=== PATIENT | female | born 1985 | race Caucasian/White ===

== ENCOUNTER 2020-10-20 03:38 | Emergency (ER) | payer OTHER, SELFPAY ==
[2020-10-20 03:42] VITALS: BP 110/74; PULSE 114; RESP 16; TEMP 36.7; O2SAT 99; BMI 24.9
--- NOTE | 2020-10-20 03:56 | CTR_ITS ---
PROCEDURE INFORMATION: Exam: CT Abdomen And Pelvis With Contrast Exam date and time: 10/20/2020 4:32 AM Age: 35 years old Clinical indication: Nausea and vomiting; Additional info: Abdominal pain, hematemasis TECHNIQUE: Imaging protocol: Computed tomography of the abdomen and pelvis with contrast. Radiation optimization: All CT scans at this facility use at least one of these dose optimization techniques: automated exposure control; mA and/or kV adjustment per patient size (includes targeted exams where dose is matched to clinical indication); or iterative reconstruction. Contrast material: OMNI 300; Contrast volume: 95 ml; Contrast route: INTRAVENOUS (IV); COMPARISON: No relevant prior studies available. RADIATION DOSE METRICS: Total DLP (mGy-cm): 1125.55 FINDINGS: Liver: No mass. Gallbladder and bile ducts: No calcified stones. No ductal dilation. Pancreas: No ductal dilation. Spleen: No splenomegaly. Adrenal glands: Normal. No mass. Kidneys and ureters: No hydronephrosis. Stomach and bowel: Left adnexal cyst measuring 3.7 x 4.6 cm versus fluid-filled loop of bowel (axial image 63). Further characterization with pelvic ultrasound may be helpful. Fluid-filled loops of small and large bowel without a transition point identified. Correlate clinically to exclude an enterocolitis or ileus. Appendix: No evidence of appendicitis. Intraperitoneal space: No free air. No significant fluid collection. Vasculature: No abdominal aortic aneurysm. Lymph nodes: No enlarged lymph nodes. Urinary bladder: Unremarkable as visualized. Reproductive: See above. Bones/joints: Unremarkable. No acute fracture. Soft tissues: Unremarkable. CT/CT abdomen pelvis w con* [id number] IMPRESSION: 1. Left adnexal cyst measuring 3.7 x 4.6 cm versus fluid-filled loop of bowel. Further characterization with pelvic ultrasound may be helpful. 2. Fluid-filled loops of small and large bowel without a transition point identified. Correlate clinically to exclude an enterocolitis or ileus. Radiation Dose CTDIVOL = (mGy): DLP = 1125.55 (mGy-cm)
[2020-10-20 04:31] LABS: Basophils # 0.1 10^3/uL (0.0-0.1); Basophils % 0.5 %; Eosinophils # 0.1 10^3/uL (0.0-0.8); Eosinophils % 0.4 %; Hematocrit 50.1 % (37.0-47.0); Hemoglobin 16.5 g/dL (11.5-15.3); Lymphocytes # 0.6 10^3/uL (0.8-4.8); Lymphocytes % 4.2 %; Mean Corpuscular HGB Conc 32.9 g/dL (30.0-36.0); Mean Corpuscular Hemoglobin 29.1 pg (28.0-34.0); Mean Corpuscular Volume 88.4 fL (81-99); Monocytes # 1.1 10^3/uL (0.2-0.9); Monocytes % 7.3 %; Neutrophils # 13.36 10^3/uL (1.8-7.7); Neutrophils % 87.1 %; Nucleated Red Blood Cells % 0 %; Platelet Count 263 10^3/cmm (130-400); Red Blood Count 5.67 10^6/uL (4.1-5.3); White Blood Count 15.3 10^3/uL (4.0-10.0)
[2020-10-20] MEDS: sodium chloride 0.9% 1,000 ML 999 ML IV (04:36)
[2020-10-20] MEDS: LORazepam 2 mg/mL INJ 1 mL 1 MG IVP (04:36)
[2020-10-20] MEDS: ondansetron 2 mg/ML SDV 2 mL 4 MG IVP (04:36)
[2020-10-20 04:45] LABS: Add Urine Culture? No; Add Urine Microscopic? YES; Bacteria Urine TRACE /hpf; Bilirubin Urine Neg (Negative); Blood Urine Neg (Negative); Glucose Urine UA Norm (Normal); Ketones Urine 1+ (Negative); Leukocyte Esterase Urine Negative (Negative); Mucus Urine 2+ /hpf; Nitrate Urine Negative (Negative); Protein Urine Neg (Negative); Specific Gravity, Urine 1.025 (1.005-1.030); Urine Appearance SL Hazy (CLEAR); Urine Color Yellow (Yellow); Urobilinogen Urine Norm (Negative); pH Urine 5 (5-7)
[2020-10-20 04:48] LABS: Alanine Aminotransferase 19 U/L (0-33); Albumin Level 4.8 g/dL (3.5-5.2); Alkaline Phosphatase 97 IU/L (35-105); Anion Gap 17.2 (5-19); Aspartate Amino Transferase 21 U/L (0-32); Blood Urea Nitrogen 14 mg/dL (6-20); C Reactive Protein 2.2 mg/L (0.0-4.9); Calcium 8.8 mg/dL (8.5-10.5); Carbon Dioxide 26 mmol/L (22-29); Chloride 103 mmol/L (98-107); Globulin 2.6 g/dL (1.3-4.6); Glomerular Filtration Rate 113.1 mL/min (90-130); Glucose 117 mg/dL (65-115); Lipase 31 U/L (13-60); Osmolality Calculated 296 mOsm/kg (285-295); Potassium 4.2 mmol/L (3.5-5.1); Sodium 142 mmol/L (136-145); Total Bilirubin 0.5 mg/dL (0.15-1.2); Total Protein 7.4 g/dL (6.6-8.7)
[2020-10-20 04:49] VITALS: BP 118/78; PULSE 68; RESP 16; O2SAT 98
[2020-10-20 04:49] LABS: HCG, Serum Qual Negative (Negative)
[2020-10-20] MEDS: iohexol 300 mg/mL 100 mL Btl IV (04:57)
--- NOTE | 2020-10-20 05:27 | ED_ITS ---
HPI - Nausea/Vomiting/Diarrhea General: Chief complaint: Nausea/Vomiting/Diarrhea Stated complaint: N/V/D Time Seen by Provider: 10/20/20 03:55 History of Present Illness: HPI Narrative: 35-year-old female presents with vomiting and diarrhea that started at midnight. The last few time she is vomited, she has noticed blood in the emesis. She says that this happened once before to her several years ago. No known inciting event. No fever. Minimal belly pain. She has had a tubal ligation and 2 C-sections as far as belly surgeries. MD elicited complaint: nausea, vomiting and diarrhea Pertinent past history: abdominal surgery (distant) Onset (ago): hour(s) Description of vomiting: watery and bloody Description of diarrhea: watery Associated nausea: Yes Associated abdominal pain: No Location of pain: Diffuse Radiation: diffuse Pain consistency: constant Quality: cramping Associated symtoms: Reports nausea; Denies altered mental status, cough, dizziness, fevers/chills, rash or short of breath Review of Systems Const: Denies: fever(s) or chills Resp: Denies: dyspnea or productive cough GI: Reports: nausea, vomiting, hematemesis and diarrhea Neuro: Denies: dizziness PFSH ED PFSH: Social History Smoking and tobacco status: never smoked Physical Exam Const: EXAM LIMITATIONS: no altered mental status Eye: COMMON NORMALS: Equal, round and reactive pupils present and EOMs intact bilaterally PUPIL: Yes Equal, round and reactive pupils present Chest: COMMONS NORMALS: normal inspection of the chest and normal inspection of the breasts Breast/axilla inspection: Yes normal inspection of the breasts Resp: COMMON NORMALS: normal respiratory effort, No use of accessory muscles and clear to auscultation bilaterally AUSCULTATION: clear to auscultation bilaterally Cardio: COMMON NORMALS: regular rhythm and No murmurs present (Cardio) RATE: tachycardic RHYTHM: regular rhythm GI: COMMON NORMALS: Soft to palpation and non-tender INSPECTION: Yes normal to inspection AUSCULTATION: Yes Hyperactive bowel sounds present PALPATION: Yes Soft to palpation Course Vital Signs: Vital signs: Vital Signs Temperature 98.1 F 10/20/20 03:42 Pulse Rate 114 H 10/20/20 03:42 Respiratory Rate 16 05/16/21 03:42 Blood Pressure 110/74 10/20/20 03:42 Pulse Oximetry 99 10/20/20 03:42 MDM - Nausea/Vomiting/Diarrhea MDM Narrative: Medical decision making narrative: 35-year-old female with a history of multiple episodes of vomiting and diarrhea. Evidently there was some blood in the vomitus. Her white blood cell count is 15.3. Hemoglobin 16.5. Electrolytes and renal function are normal. She has ketones in her urine. CT reveals fluid-filled loops of small and large bowel without a transition point indicative of enterocolitis. Lab Data: Labs: Lab Results 10/20/20 10/20/20 10/20/20 Range/Units 04:25 04:25 04:25 WBC 15.3 H (4.0-10.0) 10^3/ uL RBC 5.67 H (4.1-5.3) 10^6/u L Hgb 16.5 H (11.5-15.3) g/dL Hct 50.1 H (37.0-47.0) % MCV 88.4 (81-99) fL MCH 29.1 (28.0-34.0) pg MCHC 32.9 (30.0-36.0) g/dL RDW 13.0 (12.1-15.1) % Plt Count 263 (130-400) 10^3/c mm MPV 10.0 (7.4-10.4) fL Neut % (Auto) 87.1 % Lymph % (Auto) 4.2 % Calhoun % (Auto) 7.3 % Eos % (Auto) 0.4 % Baso % (Auto) 0.5 % Neut # (Auto) 13.36 H (1.8-7.7) 10^3/u L Lymph # (Auto) 0.6 L (0.8-4.8) 10^3/u L Calhoun # (Auto) 1.1 H (0.2-0.9) 10^3/u L Eos # (Auto) 0.1 (0.0-0.8) 10^3/u L Baso # (Auto) 0.1 (0.0-0.1) 10^3/u L Nucleated RBC % (a uto) 0 % Nucleated RBCs # 0.0 /100WBC Sodium 142 (136-145) mmol/L Potassium 4.2 (3.5-5.1) mmol/L Chloride 103 (98-107) mmol/L Carbon Dioxide 26 (22-29) mmol/L Anion Gap 17.2 (5-19) BUN 14 (6-20) mg/dL Creatinine 0.6 (0.5-0.9) mg/dL GFR Calculation 113.1 (90-130) mL/min Glucose 117 H (65-115) mg/dL Calculated Osmolal ity 296 H (285-295) mOsm/k g Calcium 8.8 (8.5-10.5) mg/dL Total Bilirubin 0.5 (0.15-1.2) mg/dL AST 21 (0-32) U/L ALT 19 (0-33) U/L Alkaline Phosphata se 97 (35-105) IU/L C-Reactive Protein 2.2 (0.0-4.9) mg/L Total Protein 7.4 (6.6-8.7) g/dL Albumin 4.8 (3.5-5.2) g/dL Globulin 2.6 (1.3-4.6) g/dL Lipase 31 (13-60) U/L HCG, Qual Negative (Negative) Urine Color (Yellow) Urine Appearance (CLEAR) Urine pH (5-7) Ur Specific Gravit y (1.005-1.030) Urine Protein (Negative) Urine Glucose (UA) (Normal) Urine Ketones (Negative) Urine Blood (Negative) Urine Nitrate (Negative) Urine Bilirubin (Negative) Urine Urobilinogen (Negative) mg/dL Ur Leukocyte Luz ase (Negative) Urine RBC (0-2) /hpf Urine WBC (0-5) /hpf Ur Squamous Epith Cells (0-5) /hpf Amorphous Sediment Urine Bacteria (NONE) /hpf Urine Mucus /hpf 10/20/20 Range/Units 04:25 WBC (4.0-10.0) 10^3/ uL RBC (4.1-5.3) 10^6/u L Hgb (11.5-15.3) g/dL Hct (37.0-47.0) % MCV (81-99) fL MCH (28.0-34.0) pg MCHC (30.0-36.0) g/dL RDW (12.1-15.1) % Plt Count (130-400) 10^3/c mm MPV (7.4-10.4) fL Neut % (Auto) % Lymph % (Auto) % Calhoun % (Auto) % Eos % (Auto) % Baso % (Auto) % Neut # (Auto) (1.8-7.7) 10^3/u L Lymph # (Auto) (0.8-4.8) 10^3/u L Calhoun # (Auto) (0.2-0.9) 10^3/u L Eos # (Auto) (0.0-0.8) 10^3/u L Baso # (Auto) (0.0-0.1) 10^3/u L Nucleated RBC % (a uto) % Nucleated RBCs # /100WBC Sodium (136-145) mmol/L Potassium (3.5-5.1) mmol/L Chloride (98-107) mmol/L Carbon Dioxide (22-29) mmol/L Anion Gap (5-19) BUN (6-20) mg/dL Creatinine (0.5-0.9) mg/dL GFR Calculation (90-130) mL/min Glucose (65-115) mg/dL Calculated Osmolal ity (285-295) mOsm/k g Calcium (8.5-10.5) mg/dL Total Bilirubin (0.15-1.2) mg/dL AST (0-32) U/L ALT (0-33) U/L Alkaline Phosphata se (35-105) IU/L C-Reactive Protein (0.0-4.9) mg/L Total Protein (6.6-8.7) g/dL Albumin (3.5-5.2) g/dL Globulin (1.3-4.6) g/dL Lipase (13-60) U/L HCG, Qual (Negative) Urine Color Yellow (Yellow) Urine Appearance Sl hazy (CLEAR) Urine pH 5 (5-7) Ur Specific Gravit y 1.025 (1.005-1.030) Urine Protein Neg (Negative) Urine Glucose (UA) Norm (Normal) Urine Ketones 1+ H (Negative) Urine Blood Neg (Negative) Urine Nitrate Negative (Negative) Urine Bilirubin Neg (Negative) Urine Urobilinogen Norm (Negative) mg/dL Ur Leukocyte Luz ase Negative (Negative) Urine RBC None (0-2) /hpf Urine WBC None (0-5) /hpf Ur Squamous Epith Cells 10-15 H (0-5) /hpf Amorphous Sediment Not Reportable Urine Bacteria Trace (NONE) /hpf Urine Mucus 2+ /hpf Discharge Plan Discharge Patient Disposition: Home Clinical Impression: Enterocolitis Condition: Stable Prescriptions: New Flagyl 500 mg tablet 500 mg PO Q8H 7 Days Qty: 21 RF: 0 Zofran 4 mg tablet 4 mg PO Q6H PRN (Reason: nausea and vomiting) Qty: 10 RF: 0 No Action neomycin-polymyxin B-dexameth [Maxitrol] 3.5mg/mL-10,000 unit/mL-0.1 % drops,suspension 1 drop ophthalmic (eye) Q8H 7 Days Qty: 5 RF: 0 Discharge Orders: Discharge ED (Routine); Ordered 10/20/20 Ordered By: Melchor Carolina Discharge Diet: Advance as tolerated and Clear Liquid Discharge Activity: Increase activity as tolerated Patient Instructions: Gastroenteritis (ED) Activity Restrictions/Additional Instructions: Return for worsening vomiting despite treatment, worsening pain, continued blood in the vomitus or stool, fever greater than 100, any other concerning symptoms. Follow-up with your doctor within 3 days, as further outpatient testing may be needed. Coding Level of Care Code ED Pasteurizing Machine Operator for Leticia Fwd Exam Detailed
[2020-10-20] MEDS: sodium chloride 0.9% 500 ML 999 ML IV (06:15)
[2020-10-20] MEDS: metroNIDAZOLE 500 MG Tablet PO (06:15)
[2020-10-20] MEDS: dexamethasone 4 mg/mL INJ 8 MG IVP (06:15)
[2020-10-20 06:33] VITALS: BP 128/68; PULSE 70; RESP 17; O2SAT 99
[2020-10-20 06:37] VITALS: BP 132/70; PULSE 70; RESP 17; O2SAT 99
== END 2020-10-20 06:43 | disposition home or self-care (01) ==
PROVIDERS: Emergency Provider Emergency Medicine
DX: K52.9 Noninfective gastroenteritis and colitis, unspecified (principal)
CPT/HCPCS: 74177; 80053; 81001; 83690; 84703; 85025; 86140; 96361; 96374; 96375; 99284; J1100; J2060; J2405; J7030; J7040; Q9967

== ENCOUNTER 2022-04-10 01:28 | Emergency (ER) | payer OTHER, SELFPAY ==
[2022-04-10 01:38] VITALS: BP 130/96; PULSE 102; RESP 18; TEMP 36.2; O2SAT 99; BMI 28.3
--- NOTE | 2022-04-10 01:46 | ED_ITS ---
HPI - General Adult General: Chief complaint: Airway/Esophagus Foreign Body Stated complaint: possible food in the esophagus Time Seen by Provider: 04/10/22 01:31 Source: patient Mode of arrival: ambulatory Limitations: no limitations History of Present Illness: 36-year-old female who states she is eating cookie dough tonight around 1030 she states that she felt like she got stuck in her esophagus was having a hard time swallowing states that she felt like she was able to swallow but she still having sensation of the food stuck in her esophagus at times she is able to swallow liquids she denies any vomiting or diarrhea denies any worsening proving factors. Associated symptoms: Deny chest pain, dyspnea, headache(s) or rash Review of Systems Const: Denies: fever(s), chills, body aches or change in appetite Eyes: Denies: blurry vision or eye discomfort ENMT: Denies: throat pain or dental pain Card: Denies: chest pain Resp: Denies: dyspnea GI: Reports: dysphagia : Denies: dysuria Musc: Denies: neck pain or back pain Skin/Breast: Denies: rash Neuro: Denies: headache(s) Psych: Denies: depression Lamont/Lymph: Denies: easy bruising All/Imm: Denies: urticaria PFSH ED PFSH: Medical History (Updated 04/10/22 @ 02:49 by Michael Johns MD) No pertinent past medical history Social History Smoking and tobacco status: never smoked Physical Exam Const: COMMON NORMALS: no acute distress, patient oriented x3 and healthy appearing HENMT: COMMON NORMALS: normocephalic and atraumatic HEAD & SCALP: normocephalic and atraumatic Eye: COMMON NORMALS: Equal, round and reactive pupils present and EOMs intact bilaterally PUPIL: Yes Equal, round and reactive pupils present Neck/C-Spine: COMMON NORMALS: full ROM and supple Chest: COMMONS NORMALS: normal inspection of the chest and normal palpation of entire chest wall Resp: COMMON NORMALS: normal respiratory effort, No retractions, No use of accessory muscles and clear to auscultation bilaterally AUSCULTATION: clear to auscultation bilaterally Cardio: COMMON NORMALS: regular rate, regular rhythm and No murmurs present (Cardio) RATE: regular rate RHYTHM: regular rhythm GI: COMMON NORMALS: Normal to inspection, nondistended, normoactive bowel sounds present, Soft to palpation, non-tender and no masses PALPATION: Yes Soft to palpation Extremity: COMMON NORMALS: normal to inspection and full ROM Neuro: COMMON NORMALS: patient oriented x3, moves all extremities and no focal motor deficits Psych: COMMON NORMALS: mental status grossly normal, Normal thought process present and cooperative THOUGHT PROCESS: Normal thought process present Skin: COMMON NORMALS: no rashes or lesions noted and no wounds GENERAL SKIN EXAM: no rashes or lesions noted Course Vital Signs: Vital signs: Vital Signs Temperature 97.1 F L 04/10/22 01:38 Pulse Rate 102 H 04/10/22 01:38 Respiratory Rate 18 04/10/22 01:38 Blood Pressure 130/96 04/10/22 01:38 Pulse Oximetry 99 04/10/22 01:38 Oxygen Delivery Me thod 04/10/22 01:38 MDM - General Adult Medical Decision Making Patient presents here with likely food impaction of the esophagus she feels much improved here after glucagon and nitro she has been able to drink without any difficulty she has no signs of impaction at this point do not believe she needs an EGD as she is able to swallow without any problems she is stable for d ischarge she is followed her PCP and return if worsening. Discharge Plan Discharge Patient Disposition: Home Clinical Impression: Food impaction of esophagus Condition: Stable Prescriptions: No Action neomycin-polymyxin B-dexameth [Maxitrol] 3.5mg/mL-10,000 unit/mL-0.1 % drops, suspension 1 drop ophthalmic (eye) Q8H 7 Days Qty: 5 0RF Zofran 4 mg tablet 4 mg PO Q6H PRN (Reason: nausea and vomiting) Qty: 10 0RF Discharge Orders: Discharge ED (Routine); Ordered 04/10/22 Ordered By: Michael Johns Discharge Diet: Advance as tolerated Discharge Activity: Resume usual activity Patient Instructions: Food Impaction (ED) Coding Level of Care Code ED Livestock Farmers for Chg Fwd Exam Comprehensive
[2022-04-10] MEDS: nitroglycerin 0.4 mg sublingual Tablet SUBLINGUAL (01:50)
[2022-04-10] MEDS: lidocaine 2% viscous 15 ML, aluminum-mag hydrox-simethicon 30 ML, sucralfate oral liq 1 GM PO (01:53)
[2022-04-10 02:53] VITALS: BP 141/84; PULSE 80; RESP 16; O2SAT 97
== END 2022-04-10 02:54 | disposition home or self-care (01) ==
PROVIDERS: Emergency Provider Emergency Medicine
DX: T18.128A Food in esophagus causing other injury, initial encounter (principal); X58.XXXA Exposure to other specified factors, initial encounter
CPT/HCPCS: 96372; 99284; J1610

== ENCOUNTER 2024-01-26 16:24 | Outpatient (RCR) | payer OTHER, SELFPAY | END 2024-02-05 18:00 | disposition home or self-care (01) | LOC: SPT 16:24 | PROVIDERS: PCP Family Medicine; Visit Provider Family Medicine | DX: M25.562 Pain in left knee (principal) | CPT/HCPCS: 97110; 97161 ==

== ENCOUNTER 2024-02-06 06:00 | Outpatient (RCR) | payer OTHER, SELFPAY | END 2024-03-06 23:59 | disposition home or self-care (01) | LOC: SPT 06:00 | PROVIDERS: PCP Family Medicine; Visit Provider Family Medicine | DX: M25.562 Pain in left knee (principal) | CPT/HCPCS: 97110 ==

== ENCOUNTER 2024-03-07 06:00 | Outpatient (RCR) | payer OTHER, SELFPAY | END 2024-03-08 23:59 | disposition home or self-care (01) | LOC: SPT 06:00 | PROVIDERS: PCP Family Medicine; Visit Provider Family Medicine | DX: M25.562 Pain in left knee (principal) | CPT/HCPCS: 97110 ==

== ENCOUNTER 2024-04-29 12:29 | Emergency (ER) | payer OTHER, SELFPAY ==
[2024-04-29 12:34] VITALS: BP 142/89; PULSE 77; RESP 17; TEMP 36.4; O2SAT 99; BMI 31.7
--- NOTE | 2024-04-29 12:39 | ECG_ITS ---
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
--- NOTE | 2024-04-29 12:40 | XRR_ITS ---
PROCEDURE INFORMATION: Exam: XR Chest Exam date and time: 04/29/2024 12:49 PM Age: 38 years old Clinical indication: Chest pressure; Patient HX: Chest pain; Anxiety; Hyperventilation TECHNIQUE: Imaging protocol: Radiologic exam of the chest. Views: 1 view. COMPARISON: CT abdomen pelvis w con* [id number] 10/20/2020 4:56 AM FINDINGS: Lungs: Unremarkable. No consolidation. Pleural spaces: Unremarkable. No pleural effusion. No pneumothorax. Heart/Mediastinum: Unremarkable. No cardiomegaly. Bones/joints: Unremarkable. XR/XR chest 1V portable [id number] IMPRESSION: No acute cardiopulmonary process.
[2024-04-29] MEDS: meclizine 25 mg tablet 50 MG PO (12:54)
--- NOTE | 2024-04-29 12:59 | ED_ITS ---
HPI - Dizziness 2 General: Chief Complaint: Dizziness Stated Complaint: dizzy, chest tight and burning when breathing Time Seen by Provider: 04/29/24 12:37 History of Present Illness: HPI Narrative: 38-year-old female with no significant p ast medical history presents emergency room from urgent care with burning in her chest and vertigo type symptoms. Said she started having vertigo yesterday while she was at work. This is continued on. Today she developed a burning pain on inspiration. She gone to urgent care and they told her to go to the emergency room. No cough. No fever. No nausea or vomiting. Says she started feeling somewhat short of breath as well and thought this might have to be with anxiety. Urgent care sent her here because they were concern for blood clot. Related Data Previous Rx's Medication Instructions Recorded celecoxib 100 mg capsule (Celebrex) 100 mg PO BID #60 caps 01/04/24 cyclobenzaprine 10 mg tablet 10 mg PO TID PRN muscle spasm #60 01/04/24 tabs lorazepam 1 mg tablet (Ativan) 1 mg PO BID PRN dizziness or 04/29/24 vertigo #20 tabs Allergies Allergy/AdvReac Type Severity Reaction Status Date / Time ciprofloxacin [From Cipro] Allergy RASH Verified 04/29/24 11:33 Penicillins Allergy RASH Verified 04/29/24 11:33 Review of Systems 2 Narrative: Constitutional symptoms: Negative except as documented in HPI. Skin symptoms: Negative except as documented in HPI. Eye symptoms: Negative except as documented in HPI. ENMT symptoms: Negative except as documented in HPI. Respiratory symptoms: Negative except as documented in HPI. Cardiovascular symptoms: Negative except as documented in HPI. Gastrointestinal symptoms: Negative except as documented in HPI. Genitourinary symptoms: Negative except as documented in HPI. Musculoskeletal symptoms: Negative except as documented in HPI. Neurologic symptoms: Negative except as documented in HPI. Psychiatric symptoms: Negative except as documented in HPI. Endocrine symptoms: Negative except as documented in HPI. PFSH ED 2 PFSH: Medical History No pertinent past medical history Family History Father Cancer Lung disease Stroke Grandmother Dementia Mother Stroke Denies family history of Diabetes CAD (coronary artery disease) Clotting disorder Hyperlipidemia Psychiatric illness Chronic kidney disease (CKD) Suicide Anesthesia complication Bleeding disorder Family history of premature coronary artery disease Hypertension Social History Smoking and tobacco/nicotine status: never used tobacco/nicotine Second hand smoke exposure: No Alcohol intake: current Alcohol intake frequency: holidays/special occasions only Substance/Drug Use: never Female Reproductive History: Spontaneous abortions: No Physical Exam 2 Narrative: EXAM NARRATIVE: General: Alert, no acute distress. Skin: Warm, dry. Head: Normocephalic, atraumatic. Neck: Supple, trachea midline. Eye: Extraocular movements are intact. Ears, nose, mouth and throat: mucosa moist. Cardiovascular: Regular, Normal peripheral perfusion. Respiratory: Lungs are clear to auscultation, respirations are non-labored, breath sounds are equal, Symmetrical chest wall expansion. Gastrointestinal: Soft, Nontender, Non distended Musculoskeletal: Normal ROM, no deformity. Neurological: Alert and oriented, No focal neurological deficit observed. Psychiatric: Cooperative, appropriate mood & affect. Course 2 Vital Signs: Vital signs: Vital Signs Temperature 97.6 F 04/29/24 12:34 Pulse Rate 69 04/29/24 14:16 Respiratory Rate 22 H 04/29/24 14:16 Blood Pressure 112/74 04/29/24 14:16 Pulse Oximetry 99 04/29/24 14:16 Oxygen Delivery Me thod Room Air 04/29/24 14:16 MDM - Dizziness Medical Decision Making Medical decision making: Differential diagnosis including but not limited to and based on the above HPI, review of systems and physical exam: for patient with complaint of dizziness: stroke, hypotension, hypertension, infection, vertigo, orthostasis Orders placed to evaluate differential diagnosis based on the above differential, HPI and physical exam EKG: Time 1239. Rate 71. Normal sinus rhythm, No ST-T changes, no ectopy, normal IA & QRS intervals, This was reviewed and interpreted by myself the ER physician at 1244 CT head: No acute intracranial process. no intracranial hemorrhage, no evidence of infarct. no evidence of acute fracture.This was reviewed and interpreted by myself the ER physician. Chest x-ray: No acute process. No infiltrate. No pneumothorax. This was reviewed and interpreted by myself the emergency room physician. I also reviewed the radiology report. Lab Review: Laboratory results were reviewed and interpreted by myself the emergency room physician. No leukocytosis. No anemia. No renal failure. D-dimer is negative so no blood clots. Flu COVID and RSV are negative. I reviewed the patient's medical record. Reexamination: Patient remained stable. No increased work of breathing. No altered mental status. No focal motor deficits. Assessment and plan: Vertigo Noncardiac chest pain - Discharged home - Discussed findings and plan with patient. Answered any questions. - All laboratory values were reviewed and interpreted personally by myself, the ER physician - All imaging was reviewed and interpreted personally by myself, the ER physician. - Evaluation and treatment of this problem were appropriate in the emergency setting Lab Data 04/29/24 13:22 04/29/24 13:22 Radiology Impressions Chest X-Ray 04/29/24 12:40 IMPRESSION: No acute cardiopulmonary process. Head CT 04/29/24 12:59 IMPRESSION: No large territorial infarct or intracranial bleed. Laboratory Results WBC 10.59 10^3/uL (3.29-11.43) 04/29/24 13:22 RBC 4.82 10^6/uL (3.85-5.65) 04/29/24 13:22 Hgb 14.30 g/dL (11.27-16.99) 04/29/24 13:22 Hct 43.0 % (36-47) 04/29/24 13:22 MCV 89.2 fl (85-98) 04/29/24 13:22 MCH 29.7 pg (27-33) 04/29/24 13:22 MCHC 33.3 g/dL (30-55) 04/29/24 13:22 RDW 13.0 % (12.1-15.1) 04/29/24 13:22 Plt Count 268 10^3/cmm (157-399) 04/29/24 13:22 MPV 10.5 fL (7.4-10.4) H 04/29/24 13:22 Neut % (Auto) 84.1 % 04/29/24 13:22 Lymph % (Auto) 9.3 % 04/29/24 13:22 [place] % (Auto) 5.0 % 04/29/24 13:22 Eos % (Auto) 0.5 % 04/29/24 13:22 Baso % (Auto) 0.3 % 04/29/24 13:22 Neut # (Auto) 8.92 10^3/uL (1.8-7.7) H 04/29/24 13:22 Lymph # (Auto) 1.0 10^3/uL (0.8-4.8) 04/29/24 13:22 [place] # (Auto) 0.5 10^3/uL (0.2-0.9) 04/29/24 13:22 Eos # (Auto) 0.1 10^3/uL (0.0-0.8) 04/29/24 13:22 Baso # (Auto) 0.0 10^3/uL (0.0-0.1) 04/29/24 13:22 Nucleated RBC % (auto) 0 % 04/29/24 13:22 Nucleated RBCs # 0.0 /100WBC 04/29/24 13:22 D-Dimer 0.30 ug/mLFEU (0-0.59) 04/29/24 13:22 Sodium 139 mmol/L (136-145) 04/29/24 13:22 Potassium 3.9 mmol/L (3.5-5.1) 04/29/24 13:22 Chloride 105 mmol/L (98-107) 04/29/24 13:22 Carbon Dioxide 24 mmol/L (22-29) 04/29/24 13:22 Anion Gap 13.9 (5-19) 04/29/24 13:22 BUN 9 mg/dL (6-20) 04/29/24 13:22 Creatinine 0.5 mg/dL (0.5-0.9) 04/29/24 13:22 GFR Calculation 137.4 mL/min (90-130) H 04/29/24 13:22 Glucose 112 mg/dL (65-115) 04/29/24 13:22 Calculated Osmolality 287 mOsm/kg (285-295) 04/29/24 13:22 Calcium 8.9 mg/dL (8.5-10.5) 04/29/24 13:22 Total Bilirubin 0.4 mg/dL (0.15-1.2) 04/29/24 13:22 AST 21 U/L (0-32) 04/29/24 13:22 ALT 18 U/L (0-33) 04/29/24 13:22 Alkaline Phosphatase 100 U/L (35-105) 04/29/24 13:22 C-Reactive Protein 3.0 mg/L (0.0-4.9) 04/29/24 13:22 Total Protein 6.9 g/dL (6.6-8.7) 04/29/24 13:22 Albumin 4.3 g/dL (3.5-5.2) 04/29/24 13:22 Globulin 2.6 g/dL (1.3-4.6) 04/29/24 13:22 HCG, Qual Negative (Negative) 04/29/24 13:38 Urine Color Yellow (Yellow) 04/29/24 13:38 Urine Appearance Clear (CLEAR) 04/29/24 13:38 Urine pH 6.0 (5-7) 04/29/24 13:38 Ur Specific [place] 1.009 (1.005-1.030) 04/29/24 13:38 Urine Protein Negative (Negative) 04/29/24 13:38 Urine Glucose (UA) Negative (Normal) 04/29/24 13:38 Urine Ketones Negative (Negative) 04/29/24 13:38 Urine Blood Negative (Negative) 04/29/24 13:38 Urine Nitrate Negative (Negative) 04/29/24 13:38 Urine Bilirubin Negative (Negative) 04/29/24 13:38 Urine Urobilinogen 0.2 mg/dL (Negative) 04/29/24 13:38 Ur Leukocyte Esterase Negative (Negative) 04/29/24 13:38 Urine RBC 0-2 /hpf (0-2) 04/29/24 13:38 Urine WBC 0-5 /hpf (0-5) 04/29/24 13:38 Ur Squamous Epith Cells 0-5 /hpf (0-5) 04/29/24 13:38 Amorphous Sediment Not Reportable 04/29/24 13:38 Urine Bacteria None seen /hpf (NONE) 04/29/24 13:38 Hyaline Casts 0-4 /lpf H 04/29/24 13:38 Coronavirus (PCR) Negative (Negative) 04/29/24 13:03 Influenza A (PCR) Negative (Negative) 04/29/24 13:03 Influenza Type B (PCR) Negative (Negative) 04/29/24 13:03 RSV (PCR) Negative (Negative) 04/29/24 13:03 All radiology interpretation(s) finalized by discharge Discharge Plan Discharge Patient Disposition: Home Clinical Impression: Vertigo, Non-cardiac chest pain Condition: Stable Prescriptions: New lorazepam [Ativan] 1 mg tablet 1 mg PO BID PRN (Reason: dizziness or vertigo) Qty: 20 0RF No Action cyclobenzaprine 10 mg tablet 10 mg PO TID PRN (Reason: muscle spasm) Qty: 60 0RF celecoxib [Celebrex] 100 mg capsule 100 mg PO BID Qty: 60 1RF Discharge Orders: Discharge ED (Routine); Ordered 04/29/24 Ordered By: Sole Ivey Referrals: Jesse Bird DO [Primary Care Provider] - Discharge Diet: Usual diet Discharge Activity: Increase activity as tolerated Patient Instructions: Vertigo (ED), Opioid Safety, Pain Management Activity Restrictions/Additional Instructions: Thank you for choosing [facility] for your healthcare needs today. Please realize this is an emergency room and that we are providing you with a medical screening exam and this may not be complete and all inclusive of all the testing and or work up that you may need to determine your ailment or severity of your illness. You have been screened and evaluated and felt safe for discharge. Health conditions do change or evolve sometimes and as such it is important that you follow up with your Primary Doctor to be re checked, 3-5 days is a general good time frame for follow up. You are always welcome to return to the ED for re assessment if your symptoms are worsening or you have new concerns Coding Level of Care Code ED Clinical Sociologist for Leticia Salmeron
--- NOTE | 2024-04-29 12:59 | CTR_ITS ---
PROCEDURE INFORMATION: Exam: CT Head Without Contrast Exam date and time: 04/29/2024 1:23 PM Age: 38 years old Clinical indication: Dizziness; Additional info: Vertigo TECHNIQUE: Imaging protocol: Computed tomography of the head without contrast. Radiation optimization: All CT scans at this facility use at least one of these dose optimization techniques: automated exposure control; mA and/or kV adjustment per patient size (includes targeted exams where dose is matched to clinical indication); or iterative reconstruction. COMPARISON: No relevant prior studies available. RADIATION DOSE METRICS: Total DLP (mGy-cm): 1063.6 FINDINGS: Brain: Normal. No hemorrhage. Unremarkable white matter. No mass effect. Cerebral ventricles: No ventriculomegaly. Paranasal sinuses: Visualized sinuses are unremarkable. No fluid levels. Mastoid air cells: Visualized mastoid air cells are well aerated. Bones: Unremarkable. No acute fracture. Soft tissues: Unremarkable. CT/CT head wo con* [id number] IMPRESSION: No large territorial infarct or intracranial bleed.
[2024-04-29 13:00] VITALS: BP 134/91; PULSE 70; RESP 16; O2SAT 100
[2024-04-29 13:30] VITALS: BP 117/79; PULSE 70; O2SAT 100
[2024-04-29 13:45] LABS: Basophils % 0.3 %; Eosinophils # 0.1 10^3/uL (0.0-0.8); Eosinophils % 0.5 %; Lymphocytes % 9.3 %; Mean Corpuscular HGB Conc 33.3 g/dL (30-55); Mean Corpuscular Hemoglobin 29.7 pg (27-33); Mean Corpuscular Volume 89.2 fl (85-98); Mean Platelet Volume 10.5 fL (7.4-10.4); Monocytes # 0.5 10^3/uL (0.2-0.9); Neutrophils # 8.92 10^3/uL (1.8-7.7); Neutrophils % 84.1 %; Nucleated Red Blood Cells % 0 %; Platelet Count 268 10^3/cmm (157-399); Red Blood Count 4.82 10^6/uL (3.85-5.65); White Blood Count 10.59 10^3/uL (3.29-11.43)
[2024-04-29 13:48] LABS: HCG Qualitative Urine. Negative (Negative)
[2024-04-29 13:57] LABS: Bilirubin Urine Negative (Negative); Blood Urine Negative (Negative); Glucose Urine UA Negative (Normal); Ketones Urine Negative (Negative); Leukocyte Esterase Urine Negative (Negative); Nitrate Urine Negative (Negative); Protein Urine Negative (Negative); Specific Gravity, Urine 1.009 (1.005-1.030); Urine Appearance Clear (CLEAR); Urine Color Yellow (Yellow); Urobilinogen Urine 0.2 mg/dL (Negative)
[2024-04-29 13:59] LABS: Alanine Aminotransferase 18 U/L (0-33); Albumin Level 4.3 g/dL (3.5-5.2); Alkaline Phosphatase 100 U/L (35-105); Anion Gap 13.9 (5-19); Aspartate Amino Transferase 21 U/L (0-32); Blood Urea Nitrogen 9 mg/dL (6-20); Calcium 8.9 mg/dL (8.5-10.5); Carbon Dioxide 24 mmol/L (22-29); Chloride 105 mmol/L (98-107); Creatinine Clr Calc Pharmacy 158.3122; Globulin 2.6 g/dL (1.3-4.6); Glomerular Filtration Rate 137.4 mL/min (90-130); Glucose 112 mg/dL (65-115); Osmolality Calculated 287 mOsm/kg (285-295); Potassium 3.9 mmol/L (3.5-5.1); Sodium 139 mmol/L (136-145); Total Bilirubin 0.4 mg/dL (0.15-1.2); Total Protein 6.9 g/dL (6.6-8.7)
[2024-04-29 14:02] LABS: Bacteria Urine None Seen /hpf; Hyaline Casts Urine 0-4 /lpf; RBC Urine 0-2 /hpf (0-2); Squamous Epithelial Cell Urine 0-5 /hpf (0-5); WBC Urine 0-5 /hpf (0-5)
[2024-04-29 14:16] VITALS: BP 112/74; PULSE 69; RESP 22; O2SAT 99
[2024-04-29 14:19] LABS: Covid PCR NEGATIVE (Negative); Influenza A NEGATIVE (Negative); Influenza B NEGATIVE (Negative); Respiratory Syncytial Virus Ce NEGATIVE (Negative)
[2024-04-29 14:39] VITALS: BP 112/62; PULSE 65; RESP 24; O2SAT 98
== END 2024-04-29 14:42 | disposition home or self-care (01) ==
PROVIDERS: Emergency Provider Emergency Medicine; PCP Family Medicine
DX: R42 Dizziness and giddiness (principal); R07.89 Other chest pain; Z11.52 Encounter for screening for COVID-19
CPT/HCPCS: 0241U; 36415; 70450; 71045; 80053; 81001; 81025; 85025; 85378; 86140; 93005; 99285; J8597

== ENCOUNTER → 2024-11-24 16:21 | Outpatient (BNVA) | payer BC, SELFPAY | PROVIDERS: PCP Family Medicine | DX: J02.8 Acute pharyngitis due to other specified organisms (principal); B97.89 Other viral agents as the cause of diseases classified elsewhere | CPT/HCPCS: 87880 ==